=== PATIENT | female | born 1990 | race Caucasian/White ===

== ENCOUNTER 2017-04-03 23:01 | Inpatient (IN) | payer OTHER ==
[2017-04-03 23:34] VITALS: BMI 21.4
--- NOTE | 2017-04-03 23:38 | HP ---
COWS - Scale Resting Pulse: 2= [place] 101-120 Sweatin=Flushed/Facial Moisture Restless Observation: 5= Unable to Sit Still Pupil Size: 1= Pupils >than Normal Bone or Joint Aches: 4=Acute Joint/Muscle Pain Runny Nose/ Eye Tearin= Nasal Congestion GI Upset > 30mins: 1= Stomach Cramp Tremor Observation: 2= Slight Tremor Visible Yawning Observation: 1= 1-2x During Session Anxiety or Irritability: 1=Feels Anxious/Irritable Goose Flesh Skin: 0=Smooth Skin COWS Score: 20 CIWA Score - CIWA Score Nausea/Vomitin-Mild Nausea/No Vomiting Muscle Tremors: 4-Moderate,w/Arms Extend Anxiety: 4-Mod. Anxious/Guarded Agitation: 4-Moderately Restless Paroxysmal Sweats: 1-Minimal Palms Moist Orientation: 0-Oriented Tacttile Disturbances: 3-Moderate Itch/Numb/Burn Auditory Disturbances: 0-None Visual Disturbances: 0-None Headache: 0-None Present CIWA-Ar Total Score: 17 Admission ROS S - HPI Chief Complaint: SEEKING DETOX FOR HEROIN AND XANAX DEPENDENCE. Allergies/Adverse Reactions: Allergies Allergy/AdvReac Type Severity Reaction Status Date / Time No Known Allergies Allergy Verified 04/03/17 23:32 History of Present Illness: 26 Y.O. FEMALE WITH HX OF OPIOID AND BENZO DEPENDENCE SEEKING DETOX TXMENT. CLIENT IS REFERRED BY [facility] AFTER PRESENTING THERE FOR NUMBNESS TO R HAND FINGERS AFTER "SHOOTING UP HEROIN".. CLIENT REPORTS THIS BEING HER FIRST TIME IN TXMENT. DENIES ANY SIGNIFICANT PERIOD OF CLEAN TIME. Exam Limitations: No Limitations - Ebola screening Have you traveled outside of the country in the last 21 days: No Have you had contact with anyone from an Ebola affected area: No Do you have a fever: No - Review of Systems Constitutional: Chills, Loss of Appetite, Malaise, Night Sweats EENT: reports: Tearing, Nose Congestion, Other (RINORRHEA) Respiratory: reports: Shortness of Breath Cardiac: reports: No Symptoms Reported GI: reports: Abdominal cramping : reports: No Symptoms Reported Musculoskeletal: reports: Back Pain, Joint Pain Integumentary: reports: No Symptoms Reported Neuro: reports: No Symptoms reported Endocrine: reports: No Symptoms Reported Hematology: reports: No Symptoms Reported Psychiatric: reports: Anxious Other Systems: Reviewed and Negative Patient History - Patient Medical History Hx Anemia: No Hx Asthma: No Hx Chronic Obstructive Pulmonary Disease (COPD): No Hx Cancer: No Hx Cardiac Disorders: No Hx Congestive Heart Failure: No Hx Hypertension: No Hx Hypercholesterolemia: No Hx Pacemaker: No HX Cerebrovascular Accident: No Hx Seizures: No Hx Dementia: No Hx Diabetes: No Hx Gastrointestinal Disorders: No Hx Liver Disease: No Hx Genitourinary Disorders: No Hx Sexually Transmitted Disorders: No Hx Renal Disease (ESRD): No Hx Thyroid Disease: No Hx Human Immunodeficiency Virus (HIV): No Hx Hepatitis C: No Hx Depression: No Hx Suicide Attempt: No Hx Bipolar Disorder: No Hx Schizophrenia: No Other Medical History: DENIES - Patient Surgical History Past Surgical History: No - PPD History Previous Implant?: Yes Documented Results: Negative w/o proof Implanted On Prior [facility] Admission?: No PPD to be Administered?: Yes - Reproductive History Patient is a Female of Child Bearing Age (11 -55 yrs old): Yes LMP comment: 2016 Patient : No (NEG [facility] [place]) - Smoking Cessation Smoking history: Current every day smoker Have you smoked in the past 12 months: Yes Aproximately how many cigarettes per day: 20 Cigars Per Day: 0 Hx Chewing Tobacco Use: No Initiated information on smoking cessation: Yes 'Breaking Loose' booklet given: 04/03/17 - Substance & Tx. History Hx Alcohol Use: No Hx Substance Use: Yes Substance Use Type: Cocaine, Heroin, Marijuana, Tranquilizers (XANAX) Hx Substance Use Treatment: No - Substances Abused Heroin Route: Injection Frequency: Daily Amount used: 20 BAGS Age of first use: 26 Date of Last Use: 04/03/17 Alprazolam (Xanax) Route: Oral Frequency: Daily Amount used: 2 MG Age of first use: 25 Date of Last Use: 04/03/17 Cocaine Route: Smoking Frequency: 1-2 times per week Amount used: $100 Age of first use: 25 Date of Last Use: 04/03/17 Marijuana/Hashish Route: Smoking Frequency: 1-2 times per week Amount used: $50 Age of first use: 25 Date of Last Use: 04/02/17 Family Disease History - Family Disease History Family History: Denies Admission Physical Exam [facility] - Physical General Appearance: Yes: Appropriately Dressed, Mild Distress, Tremorous, Anxious HEENTM: Yes: EOMI, Normocephalic, Normal Voice, VIVI, Pharynx Normal, Nasal Congestion, Rhinorrhea, Other (TEARING) Respiratory: Yes: Chest Non-Tender, Lungs Clear, Normal Breath Sounds, No Respiratory Distress, No Accessory Muscle Use Neck: Yes: No masses,lesions,Nodules, Supple, Trachea in good position Breast: Yes: Breast Exam Deferred Cardiology: Yes: Regular Rhythm, Regular Rate, S1, S2 Abdominal: Yes: Normal Bowel Sounds, Non Tender, Flat, Soft Genitourinary: Yes: Within Normal Limits Back: Yes: Normal Inspection Musculoskeletal: Yes: full range of Motion, Gait Steady Extremities: Yes: Normal Capillary Refill, Normal Range of Motion, Non-Tender, Tremors Neurological: Yes: art gilder II-XII NML intact, Fully Oriented, Alert, Numbness (R HAND FINGERS) Integumentary: Yes: Normal Color, Dry, Warm, Track Crawford Lymphatic: Yes: Within Normal Limits - Diagnostic (1) Opioid dependence with withdrawal Current Visit: Yes Status: Chronic (2) Sedative, hypnotic or anxiolytic dependence with withdrawal, uncomplicated Current Visit: Yes Status: Chronic (3) Cocaine dependence, uncomplicated Current Visit: Yes Status: Chronic (4) Cannabis dependence, uncomplicated Current Visit: Yes Status: Chronic (5) Nicotine dependence Current Visit: Yes Status: Chronic Qualifiers: Nicotine product type: cigarettes Substance use status: uncomplicated Qualified Code(s): F17.210 - Nicotine dependence, cigarettes, uncomplicated; F17.210 - Nicotine dependence, cigarettes, uncomplicated Cleared for Admission S - Detox or Rehab [facility] Level of Care: Medically Managed Detox Regimen/Protocol: Methadone/Valium
[2017-04-03] MEDS ORDERED: MAGNESIUM HYDROX 2400MG/30ML ORAL SUSPENSION 30 ML CUP PO PRN (23:42)
[2017-04-03] MEDS ORDERED: MAGNESIUM CITRATE 300 ML BOTTLE PO PRN (23:42)
[2017-04-03] MEDS ORDERED: MAG HYDROX/AL HYDROX/SIMETH 30 ML UNIT-DOSE CUP PO PRN (23:42)
[2017-04-03] MEDS ORDERED: P-EPHED 60MG/TRIPROLIDI 2.5MG TABLET PO PRN (23:42)
[2017-04-03] MEDS ORDERED: MENTHOL/PHENOL 1 EACH UD MM PRN (23:42)
[2017-04-03] MEDS ORDERED: guaiFENesin/D-METHORPHAN HB 10 ML UNIT-DOSE CUPS PO PRN (23:42)
[2017-04-03] MEDS ORDERED: ACETAMINOPHEN 325 MG TABLET (FP) PO PRN (23:42)
[2017-04-03] MEDS ORDERED: LOPERAMIDE HCL 2 MG CAPSULE PO PRN (23:42)
[2017-04-04] MEDS ORDERED: diazePAM 5 MG TABLET PO ONE (00:01)
[2017-04-04] MEDS ORDERED: METHADONE HCL 10 MG TABLET (FOR DETOX USE ONLY) PO ONE ×3 (00:01→23:00)
[2017-04-04] MEDS: diphenhydrAMINE HCL 50 MG CAPSULE PO PRN ×2 (01:13→22:29)
[2017-04-04] MEDS: IBUPROFEN 400 MG TABLET (FP) PO PRN ×2 (02:30→22:30)
[2017-04-04] MEDS: diazePAM 5 MG TABLET PO PRN ×3 (03:25→14:56)
[2017-04-04] MEDS ORDERED: diazePAM 5 MG TABLET PO SCH (06:00)
[2017-04-04 10:00] LABS: MCH 30.3 pg (25.7-33.7); MCHC 33.8 g/dl (32.0-36.0); MEAN CELL VOLUME 89.6 fl (80-96); MEAN PLT VOLUME 8.1 fl (7.5-11.1); PLATELET COUNT 308 K/MM3 (134-434); RDW 14.1 % (11.6-15.6); WHITE BLOOD COUNT 6.7 K/mm3 (4.0-10.0)
[2017-04-04 10:12] LABS: ALBUMIN 2.9 g/dl (3.4-5.0); ALK PHOS 73 U/L (45-117); ANION GAP 8 (8-16); BILIRUBIN,TOTAL 0.5 mg/dL (0.2-1.0); CALCIUM 8.1 mg/dL (8.5-10.1); CO2 22 mmol/L (21-32); CREATININE 0.7 mg/dL (0.55-1.02); GLUCOSE,RANDOM 72 mg/dL (74-106); SGOT/AST 17 U/L (15-37); SGPT/ALT 26 U/L (12-78); TOT PROT 7.8 g/dl (6.4-8.2)
[2017-04-04] MEDS: NICOTINE 21 MG/24 HOURS TOPICAL PATCH TD SCH (10:32)
[2017-04-04] MEDS: PRENATAL VITAMINS W/ FOLIC ACID TABLET (FP) PO SCH (10:33)
--- NOTE | 2017-04-04 11:00 | EKG ---
Test Reason : Blood Pressure : / mmHG Vent. Rate : 083 BPM Atrial Rate : 083 BPM P-R Int : 132 ms QRS Dur : 088 ms QT Int : 374 ms P-R-T Axes : 054 065 052 degrees QTc Int : 439 ms NORMAL SINUS RHYTHM WITH SINUS ARRHYTHMIA NORMAL ECG NO PREVIOUS ECGS AVAILABLE Confirmed by ASAF MULLEN, JUDD ([id number] on 04/04/2017 11:00:45 AM Referred By: Timo Asif Confirmed By:JUDD RON MD
[2017-04-04 11:14] LABS: HIV 1 & 2 AB NEGATIVE; HIV 1 AGp24 NEGATIVE
[2017-04-04] MEDS ORDERED: FLU VACCINE QUAD 60 MCG/0.5 ML (MDV 17-18) IM ONE (12:00)
--- NOTE | 2017-04-04 12:14 | PN ---
[facility] CIWA - CIWA Score Nausea/Vomitin-Mild Nausea/No Vomiting Muscle Tremors: 2 Anxiety: 4-Mod. Anxious/Guarded Agitation: 2 Paroxysmal Sweats: 3 Orientation: 0-Oriented Tacttile Disturbances: 0-None Auditory Disturbances: 0-None Visual Disturbances: 0-None Headache: 0-None Present CIWA-Ar Total Score: 12 S COWS - Scale Resting Pulse: 1= [place] 81-100 Sweatin=Flushed/Facial Moisture Restless Observation: 1= Difficult to Sit Still Pupil Size: 0= Normal to Room Light Bone or Joint Aches: 1= Mild Discomfort Runny Nose/ Eye Tearin= Nasal Congestion GI Upset > 30mins: 1= Stomach Cramp Tremor Observation of Outstretched Hands: 1= Tremor Coleman, Not Seen Yawning Observation: 0= None Anxiety or Irritability: 2=Irritable/Anxious Goose Flesh Skin: 0=Smooth Skin COWS Score: 10 S Progress Note (SOAP) Subjective: Anxiety,tremors,sweating Objective: 04/04/17 12:11 Vital Signs - 8 hr 04/04/17 04/04/17 06:00 10:00 Temperature 97.3 F L 98.8 F Pulse Rate 88 89 Respiratory 16 18 Rate Blood Pressure 107/76 121/52 Laboratory Last Values WBC 6.7 K/mm3 (4.0-10.0) 04/04/17 07:30 RBC 4.21 M/mm3 (3.60-5.2) 04/04/17 07:30 Hgb 12.8 GM/dL (10.7-15.3) 04/04/17 07:30 Hct 37.8 % (32.4-45.2) 04/04/17 07:30 MCV 89.6 fl (80-96) 04/04/17 07:30 MCH 30.3 pg (25.7-33.7) 04/04/17 07:30 MCHC 33.8 g/dl (32.0-36.0) 04/04/17 07:30 RDW 14.1 % (11.6-15.6) 04/04/17 07:30 Plt Count 308 K/MM3 (134-434) 04/04/17 07:30 MPV 8.1 fl (7.5-11.1) 04/04/17 07:30 Sodium 141 mmol/L (136-145) 04/04/17 07:30 Potassium 3.8 mmol/L (3.5-5.1) 04/04/17 07:30 Chloride 111 mmol/L (98-107) H 04/04/17 07:30 Carbon Dioxide 22 mmol/L (21-32) 04/04/17 07:30 Anion Gap 8 (8-16) 04/04/17 07:30 BUN 11 mg/dL (7-18) 04/04/17 07:30 Creatinine 0.7 mg/dL (0.55-1.02) 04/04/17 07:30 Creat Clearance w eGFR > 60 (>60) 04/04/17 07:30 Random Glucose 72 mg/dL (74-106) L 04/04/17 07:30 Calcium 8.1 mg/dL (8.5-10.1) L 04/04/17 07:30 Total Bilirubin 0.5 mg/dL (0.2-1.0) 04/04/17 07:30 AST 17 U/L (15-37) 04/04/17 07:30 ALT 26 U/L (12-78) 04/04/17 07:30 Alkaline Phosphatase 73 U/L (45-117) 04/04/17 07:30 Total Protein 7.8 g/dl (6.4-8.2) 04/04/17 07:30 Albumin 2.9 g/dl (3.4-5.0) L 04/04/17 07:30 RPR Titer Nonreactive (NONREACTIVE) 04/04/17 07:30 HIV 1&2 Antibody Screen Negative 04/04/17 07:30 HIV P24 Antigen Negative 04/04/17 07:30 labs noted Assessment: 04/04/17 12:11 Withdrawal sx. Plan: Continue detox
--- NOTE | 2017-04-04 13:06 | PN ---
[facility] Progress Note Note: Patient approached for interview, She was found in bed sleeping, not responding to her name being called loudly. Interview postponed for a more appropriate time when patient is awake and able to cooperate
[2017-04-04] MEDS: THIAMINE HCL 100 MG TABLET (FP) PO SCH (22:29)
[2017-04-04] MEDS: diazePAM 5 MG TABLET PO SCH (22:29)
[2017-04-05] MEDS ORDERED: METHADONE HCL 10 MG TABLET (FOR DETOX USE ONLY) PO SCH (10:00)
[2017-04-05] MEDS: NICOTINE 21 MG/24 HOURS TOPICAL PATCH TD SCH (10:21)
[2017-04-05] MEDS: diazePAM 5 MG TABLET PO SCH ×2 (10:21→22:29)
[2017-04-05] MEDS: PRENATAL VITAMINS W/ FOLIC ACID TABLET (FP) PO SCH (10:21)
[2017-04-05] MEDS: CYCLOBENZAPRINE HCL 10 MG TABLET (FP) PO PRN ×2 (10:57→22:29)
--- NOTE | 2017-04-05 12:08 | PN ---
[facility] CIWA - CIWA Score Nausea/Vomitin-No Nausea/No Vomiting Muscle Tremors: 4-Moderate,w/Arms Extend Anxiety: 3 Agitation: 3 Paroxysmal Sweats: 2 Orientation: 0-Oriented Tacttile Disturbances: 0-None Auditory Disturbances: 0-None Visual Disturbances: 0-None Headache: 0-None Present CIWA-Ar Total Score: 12 S COWS - Scale Resting Pulse: 0= [place] 80 or Below Sweatin=Flushed/Facial Moisture Restless Observation: 1= Difficult to Sit Still Pupil Size: 0= Normal to Room Light Bone or Joint Aches: 1= Mild Discomfort Runny Nose/ Eye Tearin= Nasal Congestion GI Upset > 30mins: 0= None Tremor Observation of Outstretched Hands: 2= Slight Tremor Visible Yawning Observation: 2= >3x During Session Anxiety or Irritability: 2=Irritable/Anxious Goose Flesh Skin: 0=Smooth Skin COWS Score: 11 S Progress Note (SOAP) Subjective: agitation anxiety my fingers feel numb. sweats mild shakes interrupted sleep muscle cramps Objective: 04/05/17 12:04 Vital Signs Temperature 98.0 F 04/05/17 10:18 Pulse Rate 84 04/05/17 10:18 Respiratory Rate 16 04/05/17 10:18 Blood Pressure 102/72 04/05/17 10:18 O2 Sat by Pulse Oximetry (%) Laboratory Tests 04/04/17 04/04/17 04/04/17 07:30 07:30 07:30 WBC 6.7 RBC 4.21 Hgb 12.8 Hct 37.8 MCV 89.6 MCH 30.3 MCHC 33.8 RDW 14.1 Plt Count 308 MPV 8.1 Sodium 141 Potassium 3.8 Chloride 111 H Carbon Dioxide 22 Anion Gap 8 BUN 11 Creatinine 0.7 Creat Clearance w eGFR > 60 Random Glucose 72 L Calcium 8.1 L Total Bilirubin 0.5 AST 17 ALT 26 Alkaline Phosphatase 73 Total Protein 7.8 Albumin 2.9 L RPR Titer HIV 1&2 Antibody Screen Negative HIV P24 Antigen Negative 04/04/17 07:30 WBC RBC Hgb Hct MCV MCH MCHC RDW Plt Count MPV Sodium Potassium Chloride Carbon Dioxide Anion Gap BUN Creatinine Creat Clearance w eGFR Random Glucose Calcium Total Bilirubin AST ALT Alkaline Phosphatase Total Protein Albumin RPR Titer Nonreactive HIV 1&2 Antibody Screen HIV P24 Antigen aaox3 ambulating no acute distress numb to right fingers to 2,3,4th digits. pt states that is the same arm she injects her drugs. advised pt to see a neurologist for evaluation after detox. Assessment: 04/05/17 12:08 withdrawal sx pt is able to move fingers to right hand freely despite pt states her fingers are numb. Plan: continue detox increase fluids flexiril prn
[2017-04-05] MEDS: diazePAM 5 MG TABLET PO PRN ×2 (14:37→18:50)
[2017-04-05 17:24] LABS: URINE APPEARANCE CLOUDY; URINE BILIRUBIN NEGATIVE (NEGATIVE); URINE BLOOD NEGATIVE (NEGATIVE); URINE COLOR YELLOW; URINE GLUCOSE (UA) NEGATIVE (NEGATIVE); URINE KETONE NEGATIVE (NEGATIVE); URINE NITRITE NEGATIVE (NEGATIVE); URINE PROTEIN NEGATIVE (NEGATIVE); URINE UROBILINOGEN NEGATIVE mg/dL (0.2-1.0)
[2017-04-05 20:30] LABS: URINE LEUK ESTERASE TRACE (NEGATIVE)
[2017-04-05] MEDS: THIAMINE HCL 100 MG TABLET (FP) PO SCH (22:29)
[2017-04-05] MEDS: diphenhydrAMINE HCL 50 MG CAPSULE PO PRN (22:29)
[2017-04-06] MEDS ORDERED: diazePAM 5 MG TABLET PO SCH (10:00)
--- NOTE | 2017-04-06 10:51 | PN ---
[facility] Progress Note (SOAP) Subjective: sweats irritable agitation anxiety Objective: 04/06/17 10:49 Vital Signs Temperature 98 F 04/06/17 06:44 Pulse Rate 61 04/06/17 06:44 Respiratory Rate 16 04/06/17 06:44 Blood Pressure 97/52 04/06/17 06:44 O2 Sat by Pulse Oximetry (%) aaox3 ambulating no acute distress Assessment: 04/06/17 10:50 withdrawal sx Plan: continue detox increase fluids
[2017-04-06] MEDS: PRENATAL VITAMINS W/ FOLIC ACID TABLET (FP) PO SCH (10:53)
[2017-04-06] MEDS: diazePAM 5 MG TABLET PO SCH (10:53)
[2017-04-06] MEDS: NICOTINE 21 MG/24 HOURS TOPICAL PATCH TD SCH (10:53)
[2017-04-06] MEDS: METHADONE HCL 5 MG TABLET (FOR DETOX USE ONLY) PO SCH (10:53)
[2017-04-06] MEDS: CYCLOBENZAPRINE HCL 10 MG TABLET (FP) PO PRN ×2 (10:54→22:48)
[2017-04-06] MEDS ORDERED: COLLOIDAL OATMEAL 1 BAR EACH TP PRN (11:44)
[2017-04-06] MEDS: diazePAM 5 MG TABLET PO PRN ×2 (14:16→22:48)
[2017-04-06] MEDS: THIAMINE HCL 100 MG TABLET (FP) PO SCH (22:47)
[2017-04-06] MEDS: diphenhydrAMINE HCL 50 MG CAPSULE PO PRN (22:48)
[2017-04-07] MEDS: CYCLOBENZAPRINE HCL 10 MG TABLET (FP) PO PRN ×3 (06:57→22:42)
--- NOTE | 2017-04-07 07:30 | CONSULT ---
[facility] Psychiatric Consult - Data Date of interview: 04/07/17 Admission source: [facility] Identifying data: This is 26 years old female with no psychiatric hospiotalization history intoxicated with: Opioids, Copcaine, Cannabis, Xanax and Nicotine Substance Abuse History: Smoking history: Current every day smoker. Have you smoked in the past 12 months: Yes. Aproximately how many cigarettes per day: 20. Cigars Per Day: 0. Hx Chewing Tobacco Use: No. Initiated information on smoking cessation: Yes. 'Breaking Loose' booklet given: 04/03/17. - Substance & Tx. History. Hx Alcohol Use: No. Hx Substance Use: Yes. Substance Use Type : Cocaine, Heroin, Marijuana, Tranquilizers (XANAX). Hx Substance Use Treatment : No. - Substances Abused. Heroin. Route: Injection. Frequency: Daily. Amount used: 20 BAGS. Age of first use: 26. Date of Last Use: 04/03/17. Alprazolam (Xanax). Route: Oral. Frequency: Daily. Amount used: 2 MG. Age of first use: 25. Date of Last Use: 04/03/17. Cocaine. Route: Smoking. Frequency: 1-2 times per week. Amount used: $100. Age of first use: 25. Date of Last Use: 04/03/17. Marijuana/Hashish. Route: Smoking. Frequency: 1-2 times per week. Amount used: $50. Age of first use: 25. Date of Last Use: Medical History: Denies any significant medical problem Psychiatric History: Reports anxiety and Insokmnia, reports taking prior to admission: Ambien 10mg po qhs Physical/Sexual Abuse/Trauma History: Denies Additional Comment: Ambien 10mg po qhs Mental Status Exam - Mental Status Exam Alert and Oriented to: Person Cognitive Function: Fair Patient Appearance: Unkempt Mood: Sad Affect: Flat Patient Behavior: Sedated Speech Pattern: Delayed Voice Loudness: Mildly Soft/Quiet Thought Process: Circumstantial Thought Disorder: Being Controlled Hallucinations: Denies Suicidal Ideation: Denies Homicidal Ideation: Denies Insight/Judgement: Fair Sleep: Difficulty falling asleep Appetite: Weight loss Muscle strength/Tone: Mild Hypotonicity Gait/Station: Shuffling Additional Comments: Ambien 10mg po qhs Psychiatric Findings - Problem List ([place] 1, 2,3) (1) Cannabis dependence, uncomplicated Current Visit: Yes Status: Chronic (2) Cocaine dependence, uncomplicated Current Visit: Yes Status: Chronic (3) Nicotine dependence Current Visit: Yes Status: Chronic Qualifiers: Nicotine product type: cigarettes Substance use status: uncomplicated Qualified Code(s): F17.210 - Nicotine dependence, cigarettes, uncomplicated; F17.210 - Nicotine dependence, cigarettes, uncomplicated (4) Opioid dependence with withdrawal Current Visit: Yes Status: Chronic (5) Sedative, hypnotic or anxiolytic dependence with withdrawal, uncomplicated Current Visit: Yes Status: Chronic (6) Drug-induced mood disorder Current Visit: Yes Status: Acute - Initial Treatment Plan Initial Treatment Plan: Ambien 10mg po qhs
[2017-04-07] MEDS: METHADONE HCL 5 MG TABLET (FOR DETOX USE ONLY) PO SCH (10:54)
[2017-04-07] MEDS: NICOTINE 21 MG/24 HOURS TOPICAL PATCH TD SCH (10:54)
[2017-04-07] MEDS: PRENATAL VITAMINS W/ FOLIC ACID TABLET (FP) PO SCH (10:54)
[2017-04-07] MEDS: diazePAM 5 MG TABLET PO SCH (10:54)
--- NOTE | 2017-04-07 11:03 | PN ---
[facility] Progress Note (SOAP) Subjective: sweats irritable agitation anxiety Objective: 04/07/17 11:02 Vital Signs Temperature 97.5 F L 04/07/17 06:51 Pulse Rate 81 04/07/17 06:51 Respiratory Rate 18 04/07/17 06:51 Blood Pressure 100/65 04/07/17 06:51 O2 Sat by Pulse Oximetry (%) aaox3 ambulating no acute distress Assessment: 04/07/17 11:03 withdrawal sx Plan: continue detox increase fluids
[2017-04-07] MEDS: hydrOXYzine PAMOATE 50 MG CAPSULE (FP) PO PRN (12:27)
[2017-04-07] MEDS: THIAMINE HCL 100 MG TABLET (FP) PO SCH (22:42)
[2017-04-07] MEDS: ZOLPIDEM TARTRATE 10 MG TABLET (PARK CARE ONLY) PO PRN (22:42)
[2017-04-08] MEDS: hydrOXYzine PAMOATE 50 MG CAPSULE (FP) PO PRN ×5 (00:44→23:19)
[2017-04-08] MEDS ORDERED: METHADONE HCL 10 MG TABLET (FOR DETOX USE ONLY) PO SCH (10:00)
[2017-04-08] MEDS ORDERED: diazePAM 5 MG TABLET PO SCH (10:00)
[2017-04-08] MEDS: PRENATAL VITAMINS W/ FOLIC ACID TABLET (FP) PO SCH (11:09)
[2017-04-08] MEDS: CYCLOBENZAPRINE HCL 10 MG TABLET (FP) PO PRN ×3 (11:09→23:19)
[2017-04-08] MEDS: NICOTINE 21 MG/24 HOURS TOPICAL PATCH TD SCH (11:09)
[2017-04-08] MEDS: NICOTINE POLACRILEX 2 MG GUM BC PRN ×3 (11:39→23:20)
--- NOTE | 2017-04-08 11:39 | PN ---
[facility] Progress Note (SOAP) Subjective: sweats agitation Objective: 04/08/17 11:34 Vital Signs Temperature 97.9 F 04/08/17 09:46 Pulse Rate 88 04/08/17 09:46 Respiratory Rate 18 04/08/17 09:46 Blood Pressure 102/64 04/08/17 09:46 O2 Sat by Pulse Oximetry (%) aaox3 ambulating no acute distress Assessment: 04/08/17 11:38 withdrawal sx Plan: increase fluids continue detox d/c in am
[2017-04-08 11:57] LABS: HCV LOG 10 2.771 (.)
[2017-04-08] MEDS: THIAMINE HCL 100 MG TABLET (FP) PO SCH (23:17)
[2017-04-08] MEDS: ZOLPIDEM TARTRATE 10 MG TABLET (PARK CARE ONLY) PO PRN (23:17)
[2017-04-09] MEDS: CYCLOBENZAPRINE HCL 10 MG TABLET (FP) PO PRN (05:33)
[2017-04-09] MEDS: hydrOXYzine PAMOATE 50 MG CAPSULE (FP) PO PRN ×2 (05:34→10:14)
[2017-04-09] MEDS ORDERED: METHADONE HCL 5 MG TABLET (FOR DETOX USE ONLY) PO SCH (06:00)
[2017-04-09 07:04] VITALS: BP 102/68; PULSE 101; TEMP 95.7
--- NOTE | 2017-04-09 08:46 | DS ---
[facility] Detox Discharge Summary Admission Date: 04/03/17 Discharge Date: 04/09/17 - History Present History: Cannabis Dependence, Cocaine Dependence, Opioid Dependence, Sedative Dependence - Physical Exam Results Vital Signs: Vital Signs Temperature 95.7 F L 04/09/17 06:00 Pulse Rate 101 H 04/09/17 06:00 Respiratory Rate 18 04/09/17 06:00 Blood Pressure 102/68 04/09/17 06:00 O2 Sat by Pulse Oximetry (%) - Treatment Hospital Course: Detox Protocol Followed, Detoxed Safely, Responded well, Discharged Condition Good - Medication Discharge Medications: Ambulatory Orders NK [No Known Home Medication] 04/03/17 - Diagnosis (1) Cannabis dependence, uncomplicated Current Visit: Yes Status: Chronic (2) Cocaine dependence, uncomplicated Current Visit: Yes Status: Chronic (3) Nicotine dependence Current Visit: Yes Status: Chronic Qualifiers: Nicotine product type: cigarettes Substance use status: uncomplicated Qualified Code(s): F17.210 - Nicotine dependence, cigarettes, uncomplicated; F17.210 - Nicotine dependence, cigarettes, uncomplicated (4) Opioid dependence with withdrawal Current Visit: Yes Status: Chronic (5) Sedative, hypnotic or anxiolytic dependence with withdrawal, uncomplicated Current Visit: Yes Status: Chronic - AMA Did Patient Leave Against Medical Advice: No
[2017-04-09] MEDS: PRENATAL VITAMINS W/ FOLIC ACID TABLET (FP) PO SCH (09:03)
[2017-04-09] MEDS: NICOTINE 21 MG/24 HOURS TOPICAL PATCH TD SCH (09:04)
== END 2017-04-09 10:17 | disposition home or self-care (01) | DRG 773 ==
LOC: YASAS 23:01 → Y6N 23:15
PROVIDERS: ADMIT Internal Medicine; ATTEND Internal Medicine
PROC: HZ2ZZZZ Detoxification Services for Substance Abuse Treatment (ICD-10-PCS; principal; 2017-04-03)
DX: F11.23 Opioid dependence with withdrawal (principal); F13.230 Sedative, hypnotic or anxiolytic dependence with withdrawal, uncomplicated; F14.20 Cocaine dependence, uncomplicated; F12.20 Cannabis dependence, uncomplicated; F17.213 Nicotine dependence, cigarettes, with withdrawal; F19.24 Other psychoactive substance dependence with psychoactive substance-induced mood disorder; R20.0 Anesthesia of skin
CPT/HCPCS: 36415; 80053; 81003; 81015; 85027; 86593; 86803; 87389; 87522; 90688; 93005; 93010; G0008